=== PATIENT | male | born 1960 | race Caucasian/White ===

== ENCOUNTER 2017-12-24 21:55 | Inpatient (IN) | payer BC ==
[~2017-12-24] VITALS: Ht 175.3 cm; Wt 113.8 kg
[2017-12-24 22:30] LABS: BASO % 0.3 % (0.0-2.0); EOS # 0.1 (0.0-0.7); EOS % 0.4 % (0-4.0); GRAN % 78.2 % (42.2-75.2); HEMATOCRIT 45.3 % (42.0-52.0); HEMOGLOBIN 14.9 g/dl (13.5-18.0); LYMPH # 1.9 (1.2-3.4); LYMPH % 12.6 % (20.0-51.0); MEAN CELL VOLUME 91 fl (80.0-100.0); MEAN CORPUSCULAR HEMOGLOBIN 30 pg (27.0-31.0); MEAN CORPUSCULAR HGB CONC 33 g/dl (33.0-37.0); MEAN PLATELET VOLUME 10.3 fl (7.4-10.4); MONO # 1.2 (0.1-0.6); PLATELET COUNT 250 K/mm3 (130-400); RED BLOOD COUNT 4.98 M/mm3 (4.20-5.60); REDCELL DISTRIBUTION WIDTH-CV 12.9 % (11.5-14.5)
[2017-12-24] MEDS ORDERED: AMOXICILLIN 8751 TAB PO (22:31)
[2017-12-24] MEDS ORDERED: NORVASC 5MG5 MG/TAB PO (22:31)
[2017-12-24 22:43] LABS: ALBUMIN 3.5 gm/dL (3.5-5.0); BILIRUBIN,TOTAL 0.6 mg/dL (0.0-1.0); C-REACTIVE PROTEIN 2.1 mg/dL (0.0-0.9); CALCIUM 8.6 mg/dL (8.4-10.2); CREATININE, serum 0.98 mg/dL (0.66-1.25); POTASSIUM 3.7 mmol/L (3.4-5.0); TOTAL PROTEIN 6.5 gm/dL (6.4-8.2)
[2017-12-25] VITALS (7 sets, daily range): BP systolic 120–152; BP diastolic 63–88; PULSE 63–83; TEMP 97.4–98.6
[2017-12-26 04:41] VITALS: BP 130/71; PULSE 58; TEMP 98.2
[2017-12-26 06:58] LABS: BASO % 0.2 % (0.0-2.0); EOS % 0.2 % (0-4.0); GRAN # 9.7 (1.4-6.5); GRAN % 75.5 % (42.2-75.2); HEMATOCRIT 43.3 % (42.0-52.0); HEMOGLOBIN 14.2 g/dl (13.5-18.0); LYMPH % 15.7 % (20.0-51.0); MEAN CELL VOLUME 91 fl (80.0-100.0); MEAN CORPUSCULAR HEMOGLOBIN 30 pg (27.0-31.0); MEAN CORPUSCULAR HGB CONC 33 g/dl (33.0-37.0); MONO % 7.7 % (1.7-9.3); PLATELET COUNT 270 K/mm3 (130-400); RED BLOOD COUNT 4.76 M/mm3 (4.20-5.60); REDCELL DISTRIBUTION WIDTH-CV 12.9 % (11.5-14.5)
[2017-12-26 07:54] VITALS: BP 143/83; PULSE 63; TEMP 97.9
[2017-12-26 11:09] VITALS: BP 140/77; PULSE 60; TEMP 97.8
[2017-12-26] MEDS ORDERED: PROBIOTIC FORMU1 CAP PO (12:21)
[2017-12-26] MEDS ORDERED: CLEOCIN HCL300 MG PO (12:21)
[2017-12-26 15:15] VITALS: BP 143/79; PULSE 63; TEMP 98.2
== END 2017-12-26 15:39 | disposition home or self-care (01) | DRG 153 ==
LOC: COL.ER 21:55 → SURG 12-25 01:25
PROVIDERS: Emergency Medicine; Student in an Organized Health Care Education/Training Program
PROC: 0CJS8ZZ Inspection of Larynx, Via Natural or Artificial Opening Endoscopic (ICD-10-PCS; principal; 2017-12-25)
DX: J36 Peritonsillar abscess (principal); Z87.891 Personal history of nicotine dependence
CPT/HCPCS: J1100; J3480; J7030; Q9967

== ENCOUNTER → 2018-06-27 | Outpatient (CLI) | payer BC ==
[~2018-06-27] MED LIST: AMOXICILLIN 8751 TAB PO; CLEOCIN HCL300 MG PO; NORVASC 5MG5 MG/TAB PO; PROBIOTIC FORMU1 CAP PO
== END ==
LOC: COL.LAB 09:41
DX: Z96.642 Presence of left artificial hip joint (principal)

== ENCOUNTER 2019-04-29 16:31 | Emergency (ER) | payer BC ==
[~2019-04-29] VITALS: Ht 172.7 cm; Wt 113.6 kg
[~2019-04-29 16:31] MED LIST changes: +DOXYCYCLINE 10100 MG PO
[2019-04-29 16:52] VITALS: BP 156/91; TEMP 98.7
[2019-04-29 17:24] LABS: COLLECTION METHOD CLEAN CATCH
[2019-04-29 17:29] LABS: BASO # 0.1 (0.0-0.2); BASO % 0.6 % (0.0-2.0); EOS # 0.1 (0.0-0.7); EOS % 1.3 % (0-4.0); GRAN # 6.9 (1.4-6.5); GRAN % 77.6 % (42.2-75.2); HEMATOCRIT 48.5 % (42.0-52.0); HEMOGLOBIN 15.8 g/dl (13.5-18.0); LYMPH # 1.2 (1.2-3.4); LYMPH % 13.1 % (20.0-51.0); MEAN CELL VOLUME 90 fl (80.0-100.0); MEAN CORPUSCULAR HEMOGLOBIN 29 pg (27.0-31.0); MEAN CORPUSCULAR HGB CONC 33 g/dl (33.0-37.0); MONO # 0.6 (0.1-0.6); MONO % 7.1 % (1.7-9.3); PLATELET COUNT 302 K/mm3 (130-400); RED BLOOD COUNT 5.38 M/mm3 (4.20-5.60); REDCELL DISTRIBUTION WIDTH-CV 12.4 % (11.5-14.5)
[2019-04-29 17:35] LABS: MUCOUS Present /lpf; PH 7 (5-8); SQUAMOUS EPITHELIAL None Seen /hpf; URINE APPEARANCE Clear; URINE BACTERIA None Seen /hpf; URINE BILIRUBIN Negative (NEGATIVE); URINE BLOOD Negative (NEGATIVE); URINE COLOR Yellow; URINE GLUCOSE Negative (NEGATIVE); URINE KETONE Negative (NEGATIVE); URINE LEUKOCYTE ESTERASE Negative (NEGATIVE); URINE NITRATE Negative (NEGATIVE); URINE PROTEIN(semi-quant) Negative (NEGATIVE); URINE RBC 0-2 /hpf
[2019-04-29 17:40] LABS: ALBUMIN 3.8 gm/dL (3.5-5.0); BILIRUBIN,TOTAL 0.5 mg/dL (0.0-1.0); C-REACTIVE PROTEIN 2.4 mg/dL (0.0-0.9); CALCIUM 8.6 mg/dL (8.4-10.2); CREATININE, serum 0.91 (0.66-1.25); POTASSIUM 3.7 mmol/L (3.4-5.0); TOTAL PROTEIN 6.8 gm/dL (6.4-8.2)
[2019-04-29] MEDS ORDERED: AMOXICILLIN 8751 TAB PO ×4 (19:10→19:16)
[2019-04-29] MEDS ORDERED: NORCO 325 MG-51 TAB PO ×2 (19:13→19:29)
[2019-04-29] MEDS ORDERED: ZOFRAN ODT4 MG PO (19:13)
[2019-04-29 19:46] VITALS: PULSE 72
== END 2019-04-29 19:30 | disposition home or self-care (01) ==
LOC: COL.ER 16:31
PROVIDERS: Physician Assistant
DX: K57.32 Diverticulitis of large intestine without perforation or abscess without bleeding (principal)
CPT/HCPCS: J1885; J2405; J7030; Q9967